=== PATIENT | male | born 1930 | race Caucasian/White ===

== ENCOUNTER 2016-08-02 20:42 | Inpatient (IN) ==
--- NOTE | 2016-08-02 20:53 | Emergency Department Note ---
Disposition Clinical Impression: No other, No other(2 UTI (urinary tract infection) Qualifiers: Urinary tract infection type: acute cystitis Hematuria presence: without hematuria Qualified Code(s): N30.00 - Acute cystitis without hematuria Altered mental status Qualifiers: Altered mental status type: unspecified Qualified Code(s): R41.82 - Altered mental status, unspecified Disposition: Admitted As Inpatient Condition: Fair Time of Disposition: 23:24 Altered Mental Status HPI - General Chief Complaint: ED Altered Mental Status Stated Complaint: "confused, fever, weakness" Time Seen by Provider: 08/02/16 20:51 Source: family, EMS Mode of arrival: EMS Limitations: altered mental status Nursing Notes Reviewed: Yes Vital Signs Reviewed: Yes - History of Present Illness HPI Narrative: 86-year-old comes in with increasing confusion and temperature. Patient's family states he does have early dementia but he seems to be getting more confused had a temperature of 101 today. MD complaint: altered mental status, confusion, other (Fever) Onset (ago): hour(s) Timing confirmed by: family member Consistency of Symptoms: constant - Related Data Previous Rx's Medication Instructions Recorded Ciprofloxacin [Cipro] 500 mg PO BID #10 tablet 04/19/16 Hydrocodone/Acetaminophen [[place] 1 - 2 tab PO Q6H PRN #15 tab 04/19/16 5-325 Tablet] Ondansetron ODT [Zofran ODT] 4 mg SL Q6HR #15 tab.rapdis 04/19/16 Allergies Allergy/AdvReac Type Severity Reaction Status Date / Time No Known Allergies Allergy Verified 04/18/16 23:48 Constitutional: Reports: fever. Denies: chills, weakness, weight change Eyes: Denies: eye pain, eye discharge, vision change ENT ED: Denies: ear pain, throat pain, dental pain, hearing loss, epistaxis, congestion, dysphagia Cardiovascular: Denies: chest pain, palpitations, dyspnea on exertion, edema, syncope Respiratory: Denies: cough, dyspnea, wheezes, hemoptysis, stridor Gastrointestinal: Denies: abdominal pain, nausea, vomiting, diarrhea, constipation, hematemesis, melena, hematochezia Genitourinary: Denies: urgency, dysuria, frequency, hematuria Musculoskeletal: Denies: back pain, neck pain, arthralgia, myalgia Integumentary: Denies: rash, abrasion, lesions Neurological: Reports: confusion. Denies: headache, weakness, numbness, paresthesias, abnormal gait, vertigo Psychiatric: Denies: anxiety, depression, suicidal thoughts, homicidal thoughts , auditory hallucinations, visual hallucinations Endocrine: Denies: fatigue Hematological/Lymphatic: Denies: easy bleeding, easy bruising Allergic/Immunologic: Denies: facial swelling, urticaria Past Medical History - Past Medical History Medical history: Reports: diabetes - Social History Smoking Status: Former smoker Smokeless Tobacco Status: No Alcohol use: Reports: none Drug use: Reports: none Physical Exam - General Limitations: altered mental status General appearance: alert, in no apparent distress - Head Head exam: atraumatic, normocephalic, normal inspection - Eye Eye exam: Present: normal appearance, PERRL, EOMI - ENT ENT exam: normal exam, normal oropharynx, mucous membranes moist - Neck Neck exam: Present: normal inspection, full ROM, trachea midline - Chest Chest inspection: Present: normal inspection, symmetric chest wall rise - Respiratory Respiratory exam: Present: normal lung sounds bilaterally - Cardiovascular Cardiovascular exam: Present: regular rate, normal rhythm, normal heart sounds - Abdominal Exam Abdominal exam: Present: soft, Non-Tender. Absent: tenderness, distention, guarding, rebound, rigidity - Extremities Exam Extremities exam: Present: normal inspection, full ROM. Absent: tenderness, pedal edema - Expanded Lower Extremity Exam Neurovascular/Tendon exam: Absent: motor deficit, sensory deficit, tendon deficit Gait: not tested/not observed - Back Exam Back exam: Present: normal inspection, full ROM. Absent: tenderness - Neurological Exam Neurological exam: Present: alert, oriented X3 - Psychiatric Psychiatric exam: Present: normal affect, normal mood - Skin Skin exam: Present: warm, dry, intact, normal color Course - Reevaluation(s) Reevaluation #1: 86-year-old with borderline dementia who comes in with increasing confusion and not acting himself. Workup included a urine which appears to show infection. Time: 23:23 - Consultations Consultation #1: Discussed with Dr. Figueroa who will admit the patient. Time: 23:23 Vital Signs Temperature 100.0 F H 08/02/16 20:45 Pulse Rate 100 08/02/16 20:45 Respiratory Rate 18 08/02/16 20:45 Blood Pressure 141/81 08/02/16 20:45 O2 Sat by Pulse Oximetry 96 08/02/16 20:45 Temperature 99.4 F 08/02/16 23:58 Pulse Rate 100 08/02/16 22:26 Respiratory Rate 18 08/02/16 23:58 Blood Pressure 154/88 08/02/16 23:58 O2 Sat by Pulse Oximetry 96 08/02/16 22:26 Oxygen Delivery Oxygen Delivery Room Air Altered Mental Status - Lab Data Lab results reviewed: Yes I reviewed the patient's lab results. Result diagrams: 08/02/16 21:17 08/02/16 21:17 Lab Results 08/02/16 08/02/16 08/02/16 Range/Units 21:17 21:17 21:17 WBC 10.1 (4.3-11.1) K/mcL RBC 4.45 (4.19-5.50) M/mcL Hgb 11.9 L (12.9-16.9) g/dL Hct 37.4 L (37.5-50.1) % MCV 84.0 (83.0-100.0) fL MCH 26.7 L (28.0-33.3) pg MCHC 31.8 (31.6-35.5) g/dL RDW 14.1 (11.5-14.5) % Plt Count 397 (140-400) K/mcL MPV 9.1 L (9.4-12.4) fL Immature Gran % 0.9 (0-4) % Seg Neutrophils % 83.0 % Lymphocytes % 7.9 % Monocytes % 7.5 % Eosinophils % 0.4 % Basophils % 0.3 % Neutrophils # 8.4 (1.6-8.9) K/mcL Lymphocytes # 0.8 (0.6-4.6) K/mcL Monocytes # 0.8 (0.0-1.3) K/mcL Eosinophils # 0.0 (0.0-0.6) K/mcL Basophils # 0.0 (0.0-0.2) K/mcL PT 13.1 H (9.4-12.1) Seconds INR 1.2 APTT 33.4 (26.0-36.0) Seconds ABG pH (7.32-7.45) pH Units ABG pCO2 (35-45) mmHg ABG pO2 (85-104) mmHg ABG HCO3 (21-27) mEQ/L ABG Total CO2 (20-26) mEq/L ABG O2 Saturation (95-98) % ABG Base Excess (-2.0 to 3.0) mEq/L Blood Gas Modality Inspired O2 % Sodium 134 L (136-145) mEq/L Potassium 4.0 (3.5-4.5) mEq/L Chloride 98 (98-109) mEq/L Carbon Dioxide 25 (19-29) mEq/L BUN 11 (8-26) mg/dL Creatinine 0.80 (0.72-1.25) mg/dL Est GFR ( Amer) > 60 (> 60) Est GFR (Non-Af Amer) > 60 (> 60) BUN/Creatinine Ratio 14 (6-26) Glucose 241 H (70-99) mg/dL POC Glucose (58-89) Calculated Osmolality 285 (280-300) Lactic Acid (0.5-2.2) mmol/L Calcium 9.4 (8.6-10.8) mg/dL Total Bilirubin 0.7 (0.2-1.2) mg/dL Direct Bilirubin 0.3 (0.0-0.5) mg/dL Indirect Bilirubin 0.4 (0.0-1.2) mg/dL AST 11 (5-34) Units/L ALT 11 (0-55) Units/L Alkaline Phosphatase 64 (38-126) Units/L Ammonia (18-72) mcmol/L Troponin I (0-0.03) ng/mL Serum Total Protein 7.0 (6.0-8.3) g/dL Albumin 3.2 L (3.5-5.0) g/dL Globulin 3.8 H (2.4-3.5) g/dL Albumin/Globulin Ratio 0.8 L (1.1-2.2) Urine Color (Yellow) Urine Clarity (Clear) Urine pH (5.0-8.0) pH Units Ur Specific [place] (1.010-1.025) Urine Protein (Neg-Trace) mg/dL Urine Glucose (UA) (Normal) mg/dL Urine Ketones (Negative) mg/dL Urine Blood (Negative) Urine Nitrite (Negative) Urine Bilirubin (Negative) Urine Urobilinogen (Normal) mg/dL Ur Leukocyte Esterase (Negative) Urine Microscopic RBC (0-3) per hpf Urine Microscopic WBC (0-3) per hpf Ur Squamous Epith Cells (None-Few) per lpf Urine Bacteria (None-Few) per hpf Hyaline Casts Ur Culture Indicated? (NO) Urine Opiates Screen (Dqdhua=492) ng/mL Ur Barbiturates Screen (Kxqgkn=224) ng/mL Ur Phencyclidine Scrn (Cutoff=25) ng/mL Ur Amphetamines Screen (Dpldeg=3657) ng/mL U Benzodiazepines Scrn (Ranxrb=633) ng/mL Urine Cocaine Screen (Cutoff= 300) ng/mL U Marijuana (THC) Screen (Cutoff = 50) ng/mL 08/02/16 08/02/16 08/02/16 Range/Units 21:17 21:17 21:17 WBC (4.3-11.1) K/mcL RBC (4.19-5.50) M/mcL Hgb (12.9-16.9) g/dL Hct (37.5-50.1) % MCV (83.0-100.0) fL MCH (28.0-33.3) pg MCHC (31.6-35.5) g/dL RDW (11.5-14.5) % Plt Count (140-400) K/mcL MPV (9.4-12.4) fL Immature Gran % (0-4) % Seg Neutrophils % % Lymphocytes % % Monocytes % % Eosinophils % % Basophils % % Neutrophils # (1.6-8.9) K/mcL Lymphocytes # (0.6-4.6) K/mcL Monocytes # (0.0-1.3) K/mcL Eosinophils # (0.0-0.6) K/mcL Basophils # (0.0-0.2) K/mcL PT (9.4-12.1) Seconds INR APTT (26.0-36.0) Seconds ABG pH (7.32-7.45) pH Units ABG pCO2 (35-45) mmHg ABG pO2 (85-104) mmHg ABG HCO3 (21-27) mEQ/L ABG Total CO2 (20-26) mEq/L ABG O2 Saturation (95-98) % ABG Base Excess (-2.0 to 3.0) mEq/L Blood Gas Modality Inspired O2 % Sodium (136-145) mEq/L Potassium (3.5-4.5) mEq/L Chloride (98-109) mEq/L Carbon Dioxide (19-29) mEq/L BUN (8-26) mg/dL Creatinine (0.72-1.25) mg/dL Est GFR ( Amer) (> 60) Est GFR (Non-Af Amer) (> 60) BUN/Creatinine Ratio (6-26) Glucose (70-99) mg/dL POC Glucose (58-89) Calculated Osmolality (280-300) Lactic Acid 1.1 (0.5-2.2) mmol/L Calcium (8.6-10.8) mg/dL Total Bilirubin (0.2-1.2) mg/dL Direct Bilirubin (0.0-0.5) mg/dL Indirect Bilirubin (0.0-1.2) mg/dL AST (5-34) Units/L ALT (0-55) Units/L Alkaline Phosphatase (38-126) Units/L Ammonia 18 (18-72) mcmol/L Troponin I 0.02 (0-0.03) ng/mL Serum Total Protein (6.0-8.3) g/dL Albumin (3.5-5.0) g/dL Globulin (2.4-3.5) g/dL Albumin/Globulin Ratio (1.1-2.2) Urine Color (Yellow) Urine Clarity (Clear) Urine pH (5.0-8.0) pH Units Ur Specific [place] (1.010-1.025) Urine Protein (Neg-Trace) mg/dL Urine Glucose (UA) (Normal) mg/dL Urine Ketones (Negative) mg/dL Urine Blood (Negative) Urine Nitrite (Negative) Urine Bilirubin (Negative) Urine Urobilinogen (Normal) mg/dL Ur Leukocyte Esterase (Negative) Urine Microscopic RBC (0-3) per hpf Urine Microscopic WBC (0-3) per hpf Ur Squamous Epith Cells (None-Few) per lpf Urine Bacteria (None-Few) per hpf Hyaline Casts Ur Culture Indicated? (NO) Urine Opiates Screen (Moinzd=474) ng/mL Ur Barbiturates Screen (Ngyzap=247) ng/mL Ur Phencyclidine Scrn (Cutoff=25) ng/mL Ur Amphetamines Screen (Xcgagn=5984) ng/mL U Benzodiazepines Scrn (Aueiph=898) ng/mL Urine Cocaine Screen (Cutoff= 300) ng/mL U Marijuana (THC) Screen (Cutoff = 50) ng/mL 08/02/16 08/02/16 08/02/16 Range/Units 22:06 22:06 22:11 WBC (4.3-11.1) K/mcL RBC (4.19-5.50) M/mcL Hgb (12.9-16.9) g/dL Hct (37.5-50.1) % MCV (83.0-100.0) fL MCH (28.0-33.3) pg MCHC (31.6-35.5) g/dL RDW (11.5-14.5) % Plt Count (140-400) K/mcL MPV (9.4-12.4) fL Immature Gran % (0-4) % Seg Neutrophils % % Lymphocytes % % Monocytes % % Eosinophils % % Basophils % % Neutrophils # (1.6-8.9) K/mcL Lymphocytes # (0.6-4.6) K/mcL Monocytes # (0.0-1.3) K/mcL Eosinophils # (0.0-0.6) K/mcL Basophils # (0.0-0.2) K/mcL PT (9.4-12.1) Seconds INR APTT (26.0-36.0) Seconds ABG pH 7.47 H (7.32-7.45) pH Units ABG pCO2 42 (35-45) mmHg ABG pO2 64 L (85-104) mmHg ABG HCO3 30.6 H (21-27) mEQ/L ABG Total CO2 31.9 H (20-26) mEq/L ABG O2 Saturation 93 L (95-98) % ABG Base Excess 6.3 H (-2.0 to 3.0) mEq/L Blood Gas Modality RA Inspired O2 21 % Sodium (136-145) mEq/L Potassium (3.5-4.5) mEq/L Chloride (98-109) mEq/L Carbon Dioxide (19-29) mEq/L BUN (8-26) mg/dL Creatinine (0.72-1.25) mg/dL Est GFR ( Amer) (> 60) Est GFR (Non-Af Amer) (> 60) BUN/Creatinine Ratio (6-26) Glucose (70-99) mg/dL POC Glucose (58-89) Calculated Osmolality (280-300) Lactic Acid (0.5-2.2) mmol/L Calcium (8.6-10.8) mg/dL Total Bilirubin (0.2-1.2) mg/dL Direct Bilirubin (0.0-0.5) mg/dL Indirect Bilirubin (0.0-1.2) mg/dL AST (5-34) Units/L ALT (0-55) Units/L Alkaline Phosphatase (38-126) Units/L Ammonia (18-72) mcmol/L Troponin I (0-0.03) ng/mL Serum Total Protein (6.0-8.3) g/dL Albumin (3.5-5.0) g/dL Globulin (2.4-3.5) g/dL Albumin/Globulin Ratio (1.1-2.2) Urine Color Dark Yellow (Yellow) Urine Clarity Turbid A (Clear) Urine pH 6.5 (5.0-8.0) pH Units Ur Specific [place] 1.021 (1.010-1.025) Urine Protein 100 H (Neg-Trace) mg/dL Urine Glucose (UA) 250 H (Normal) mg/dL Urine Ketones 15 H (Negative) mg/dL Urine Blood Large H (Negative) Urine Nitrite Negative (Negative) Urine Bilirubin Negative (Negative) Urine Urobilinogen Normal (Normal) mg/dL Ur Leukocyte Esterase Large H (Negative) Urine Microscopic RBC TNTC H (0-3) per hpf Urine Microscopic WBC TNTC H (0-3) per hpf Ur Squamous Epith Cells Many H (None-Few) per lpf Urine Bacteria Many H (None-Few) per hpf Hyaline Casts Test Not Performed Ur Culture Indicated? YES A (NO) Urine Opiates Screen Negative (Ezbrsq=240) ng/mL Ur Barbiturates Screen Negative (Lggfac=716) ng/mL Ur Phencyclidine Scrn Negative (Cutoff=25) ng/mL Ur Amphetamines Screen Negative (Tkvbur=5124) ng/mL U Benzodiazepines Scrn Negative (Dyzdfj=189) ng/mL Urine Cocaine Screen Negative (Cutoff= 300) ng/mL U Marijuana (THC) Screen Negative (Cutoff = 50) ng/mL 08/02/16 Range/Units 22:14 WBC (4.3-11.1) K/mcL RBC (4.19-5.50) M/mcL Hgb (12.9-16.9) g/dL Hct (37.5-50.1) % MCV (83.0-100.0) fL MCH (28.0-33.3) pg MCHC (31.6-35.5) g/dL RDW (11.5-14.5) % Plt Count (140-400) K/mcL MPV (9.4-12.4) fL Immature Gran % (0-4) % Seg Neutrophils % % Lymphocytes % % Monocytes % % Eosinophils % % Basophils % % Neutrophils # (1.6-8.9) K/mcL Lymphocytes # (0.6-4.6) K/mcL Monocytes # (0.0-1.3) K/mcL Eosinophils # (0.0-0.6) K/mcL Basophils # (0.0-0.2) K/mcL PT (9.4-12.1) Seconds INR APTT (26.0-36.0) Seconds ABG pH (7.32-7.45) pH Units ABG pCO2 (35-45) mmHg ABG pO2 (85-104) mmHg ABG HCO3 (21-27) mEQ/L ABG Total CO2 (20-26) mEq/L ABG O2 Saturation (95-98) % ABG Base Excess (-2.0 to 3.0) mEq/L Blood Gas Modality Inspired O2 % Sodium (136-145) mEq/L Potassium (3.5-4.5) mEq/L Chloride (98-109) mEq/L Carbon Dioxide (19-29) mEq/L BUN (8-26) mg/dL Creatinine (0.72-1.25) mg/dL Est GFR ( Amer) (> 60) Est GFR (Non-Af Amer) (> 60) BUN/Creatinine Ratio (6-26) Glucose (70-99) mg/dL POC Glucose 255 H (58-89) Calculated Osmolality (280-300) Lactic Acid (0.5-2.2) mmol/L Calcium (8.6-10.8) mg/dL Total Bilirubin (0.2-1.2) mg/dL Direct Bilirubin (0.0-0.5) mg/dL Indirect Bilirubin (0.0-1.2) mg/dL AST (5-34) Units/L ALT (0-55) Units/L Alkaline Phosphatase (38-126) Units/L Ammonia (18-72) mcmol/L Troponin I (0-0.03) ng/mL Serum Total Protein (6.0-8.3) g/dL Albumin (3.5-5.0) g/dL Globulin (2.4-3.5) g/dL Albumin/Globulin Ratio (1.1-2.2) Urine Color (Yellow) Urine Clarity (Clear) Urine pH (5.0-8.0) pH Units Ur Specific [place] (1.010-1.025) Urine Protein (Neg-Trace) mg/dL Urine Glucose (UA) (Normal) mg/dL Urine Ketones (Negative) mg/dL Urine Blood (Negative) Urine Nitrite (Negative) Urine Bilirubin (Negative) Urine Urobilinogen (Normal) mg/dL Ur Leukocyte Esterase (Negative) Urine Microscopic RBC (0-3) per hpf Urine Microscopic WBC (0-3) per hpf Ur Squamous Epith Cells (None-Few) per lpf Urine Bacteria (None-Few) per hpf Hyaline Casts Ur Culture Indicated? (NO) Urine Opiates Screen (Tltrnv=812) ng/mL Ur Barbiturates Screen (Rexmpq=998) ng/mL Ur Phencyclidine Scrn (Cutoff=25) ng/mL Ur Amphetamines Screen (Udyaom=1908) ng/mL U Benzodiazepines Scrn (Aqrxgh=521) ng/mL Urine Cocaine Screen (Cutoff= 300) ng/mL U Marijuana (THC) Screen (Cutoff = 50) ng/mL - Radiology Data Radiology results reviewed: Yes I reviewed the patient's radiology results. Chest X-Ray 08/02/16 20:47 IMPRESSION: No acute cardiopulmonary disease. D/ / Justin Spear MD / Justin Spear MD Interpreting Provider: Justin Spear MD Head CT 08/02/16 20:51 IMPRESSION: No acute intracranial abnormality. Mild cerebral atrophy appropriate for age. Mild chronic ischemic white matter changes also age-appropriate. D/ / Bhupendra Aldrich MD / Bhupendra Aldrich MD Interpreting Provider: Bhupendra Aldrich MD Checklist - LKW: 3-4.5 hrs Add. Contraindications Patient/family understanding: The patient/family members have been counseled and understood the risk, benefit , and alternatives of treatment.
[2016-08-02 21:30] LABS: Basophils % 0.3 %; Eosinophils % 0.4 %; Hematocrit 37.4 % (37.5-50.1); Hemoglobin 11.9 g/dL (12.9-16.9); Immature Granulocytes % 0.9 % (0-4); Lymphocytes # 0.8 K/mcL (0.6-4.6); Lymphocytes % 7.9 %; Mean Corpuscular HGB Conc 31.8 g/dL (31.6-35.5); Mean Corpuscular Hemoglobin 26.7 pg (28.0-33.3); Mean Platelet Volume 9.1 fL (9.4-12.4); Monocytes # 0.8 K/mcL (0.0-1.3); Monocytes % 7.5 %; Neutrophils # 8.4 K/mcL (1.6-8.9); Platelet Count 397 K/mcL (140-400); Red Blood Count 4.45 M/mcL (4.19-5.50); Red Cell Distribution Width 14.1 % (11.5-14.5)
[2016-08-02 21:34] LABS: INR 1.2; Prothrombin Time 13.1 Seconds (9.4-12.1)
[2016-08-02 21:37] LABS: Activated Partial Thrombo Time 33.4 Seconds (26.0-36.0)
[2016-08-02 21:45] LABS: Alanine Aminotransferase 11 Units/L (0-55); Albumin 3.2 g/dL (3.5-5.0); Albumin/Globulin Ratio 0.8 (1.1-2.2); Alkaline Phosphatase 64 Units/L (38-126); Aspartate Amino Transferase 11 Units/L (5-34); BUN/Creatinine Ratio 14 (6-26); Bilirubin,Direct 0.3 mg/dL (0.0-0.5); Bilirubin,Indirect 0.4 mg/dL (0.0-1.2); Bilirubin,Total 0.7 mg/dL (0.2-1.2); Blood Urea Nitrogen 11 mg/dL (8-26); Calcium 9.4 mg/dL (8.6-10.8); Carbon Dioxide 25 mEq/L (19-29); Chloride 98 mEq/L (98-109); Globulin 3.8 g/dL (2.4-3.5); Glucose 241 mg/dL (70-99); Osmolality,Calculated 285 (280-300); Sodium 134 mEq/L (136-145); eGFR For African Americans > 60 (> 60); eGFR For Non-African Americans > 60 (> 60)
[2016-08-02 22:20] LABS: ABG Base Excess 6.3 mEq/L (-2.0 to 3.0); ABG HCO3 30.6 mEQ/L (21-27); ABG Oxygen Saturation 93 % (95-98); ABG PCO2 42 mmHg (35-45); ABG PH 7.47 pH Units (7.32-7.45); ABG PO2 64 mmHg (85-104); ABG TCO2 31.9 mEq/L (20-26)
[2016-08-02 22:21] LABS: Blood Gas FiO2 21 %
[2016-08-02 22:27] LABS: Bilirubin,Urine Negative (Negative); Blood,Urine Large (Negative); Clarity,Urine Turbid (Clear); Color,Urine Dark Yellow (Yellow); Glucose,Urine (UA) 250 mg/dL (Normal); Ketones,Urine 15 mg/dL (Negative); Leukocyte Esterase,Urine Large (Negative); Nitrite,Urine Negative (Negative); PH,Urine 6.5 pH Units (5.0-8.0); Protein,Urine 100 mg/dL (Neg-Trace); Specific Gravity,Urine 1.021 (1.010-1.025); Urobilinogen,Urine Normal (Normal)
[2016-08-02 22:28] LABS: Amphetamine Screen,Urine Negative ng/mL (Cutoff=1000); Barbiturate Screen,Urine Negative ng/mL (Cutoff=200); Benzodiazepines Screen,Urine Negative ng/mL (Cutoff=200); Cannabinoid Screen,Urine Negative ng/mL (Cutoff = 50); Cocaine Screen,Urine Negative ng/mL (Cutoff= 300); Opiate Screen,Urine Negative ng/mL (Cutoff=300); Phencyclidine Screen,Urine Negative ng/mL (Cutoff=25)
[2016-08-02 22:29] LABS: Bacteria,Urine Many per hpf (None-Few); RBC,Urine TNTC per hpf (0-3); Squamous Epithelial Cell,Urine Many per lpf (None-Few); WBC,Urine TNTC per hpf (0-3)
[2016-08-02] MEDS ORDERED: Acetaminophen 325 MG TABLET PO PRN (23:18)
--- NOTE | 2016-08-02 23:49 | Internal Med History&Physical ---
Date of Encounter: 08/02/16 Time of Encounter: 23:30 Assessment and Plan (1) Altered mental status Current visit: Yes Status: Acute Observation in hospital for altered mental status/acute encephalopathy related to acute urinary tract infection. Will treat UTI with IV antibiotics. Follow urine and blood cultures. CT scan of the head does not show any acute stroke or bleed. Moderate risk for complications. Qualifiers: Altered mental status type: disorientation Qualified Code(s): R41.0 - Disorientation, unspecified (2) UTI (urinary tract infection) Current visit: Yes Status: Acute Will treat with IV antibiotics. Patient received Rocephin in the ER. Will add vancomycin as he has chronic indwelling Crump catheter and previously had staph aureus infection. Qualifiers: Urinary tract infection type: acute cystitis Hematuria presence: with hematuria Qualified Code(s): N30.01 - Acute cystitis with hematuria (3) Diabetes mellitus, type 2 Current visit: Yes Status: Chronic Blood sugars are currently elevated. Will monitor blood sugars and use sliding scale insulin while the patient is in the hospital. Diabetic diet. Qualifiers: Diabetes mellitus complication status: with hyperglycemia Diabetes mellitus intermediate frame tender insulin use: without detention use Qualified Code(s): E11.65 - Type 2 diabetes mellitus with hyperglycemia (4) Dementia Current visit: Yes Status: Chronic Chronic. Not on any medications at this time. Qualifiers: Dementia type: unspecified type Dementia behavioral disturbance: without behavioral disturbance Qualified Code(s): F03.90 - Unspecified dementia without behavioral disturbance Internal Medicine - H&P: HPI Chief complaint: Altered mental status, fever Admitted From: Emergency Dept Plans for Post Hospital Care: Home History of present illness: Mr. 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 At baseline, he is able to ambulate with the help of walker one person assist and is able to feed himself. Last night he was confused and somewhat lethargic and this progressed in the morning where he was unable to participate in activities of daily living throughout the day. His family is present at bedside and provided most of the history given the patient's underlying history of dementia. The patient apparently was having fever this afternoon with a temperature of 101.2. He was also having foul odor in his urine. He is not having any nausea vomiting or diarrhea. He did not complain of any pain. No recent changes in his medications. Past Med Surg Social Fam HX - Past Medical History Medical history: diabetes Psychiatric history: no psych history - Social History Smoking Status: Former smoker Smokeless Tobacco Status: No Alcohol use: none Drug use: none - Additional Family History Additional family history: Reviewed and found to be noncontributory at this time Internal Medicine - H&P: Meds Ciprofloxacin [Cipro] 500 mg PO BID #10 tablet 04/19/16 [Rx] Hydrocodone/Acetaminophen [[place] 5-325 Tablet] 1 - 2 tab PO Q6H PRN #15 tab [Rx] Ondansetron ODT [Zofran ODT] 4 mg SL Q6HR #15 tab.rapdis 04/19/16 [Rx] Allergies No Known Allergies Allergy (Verified 04/18/16 23:48) All Systems PM: A 10-system review of systems was performed and is negative for pertinent findings except as documented above in the HPI. - Constitutional Constitutional: lethargy, malaise, no chills, no fever(s), no night sweats - EENT Eyes: no change in vision, no discharge, no pain, no photophobia Ears: no ear discharge, no ear pain, no tinnitus Nose, mouth and throat: no dysphagia, no nasal discharge, no neck pain, no sore throat - Cardiovascular Cardiovascular ROS IM: no chest pain, no diaphoresis, no dyspnea, no lightheadedness, no palpitations, no syncope - Respiratory Respiratory: no cough, no dyspnea, no wheezing, no excessive phlegm production - Gastrointestinal Gastrointestinal: no abdominal pain, no diarrhea, no hematemesis, no hematochezia, no melena, no nausea, no vomiting - Musculoskeletal Musculoskeletal ROS IM: no numbness, no tingling - Neurological Neurological ROS: confusion - Hematologic/Lymphatic Hematologic/Lymphatic: no easy bruising - Constitutional Vitals: Temp Pulse Resp BP Pulse Ox 100.0 F H 100 22 146/84 96 08/02/16 20:56 08/02/16 22:26 08/02/16 22:26 08/02/16 22:26 08/02/16 22:26 General appearance: Present: cooperative, A&O X 2, no acute distress, answers questions appropriately (Answers some questions appropriately) - Eye Eye exam: Present: EOMI, PERRL, conjuntiva pink, sclera anicteric - Neck Neck exam general surgery: Present: supple, trachea midline. Absent: lymphadenopathy - Respiratory Respiratory exam: Present: CTAB. Absent: accessory muscle use, rales, rhonchi, wheezes - Cardiovascular Cardiovascular exam: Present: RRR, +S1, +S2. Absent: diastolic murmur, gallop, rubs, systolic murmur - GI/Abdominal GI/Abdominal exam: Present: normal bowel sounds, soft, no peritoneal signs. Absent: distended, tenderness - Additional comments: Crump catheter in place - Extremities Exam Extremities exam: Present: warm, radial pulses palpable and symetrical. Absent : calf tenderness, cyanotic, pedal edema - Neurological Exam Neurological exam: Present: alert, no focal deficits. Absent: oriented X3, facial droop, speech deficit - Skin Skin exam: Present: dry, intact Internal Med - H&P Results - Labs CBC & Chem 7: 08/02/16 21:17 08/02/16 21:17 Labs: Short CBC 08/02/16 Range/Units 21:17 WBC 10.1 (4.3-11.1) K/mcL Hgb 11.9 L (12.9-16.9) g/dL Hct 37.4 L (37.5-50.1) % Plt Count 397 (140-400) K/mcL Neutrophils # 8.4 (1.6-8.9) K/mcL BMP 08/02/16 21:17 Sodium 134 L Potassium 4.0 Chloride 98 Carbon Dioxide 25 BUN 11 Creatinine 0.80 Glucose 241 H Calcium 9.4 Cardiac Enzymes 08/02/16 Range/Units 21:17 Troponin I 0.02 (0-0.03) ng/mL Liver Function 08/02/16 Range/Units 21:17 Total Bilirubin 0.7 (0.2-1.2) mg/dL Direct Bilirubin 0.3 (0.0-0.5) mg/dL AST 11 (5-34) Units/L ALT 11 (0-55) Units/L Alkaline Phosphatase 64 (38-126) Units/L Albumin 3.2 L (3.5-5.0) g/dL Urine 08/02/16 Range/Units 22:06 Urine Color Dark Yellow (Yellow) Urine Clarity Turbid A (Clear) Urine pH 6.5 (5.0-8.0) pH Units Ur Specific [place] 1.021 (1.010-1.025) Urine Protein 100 H (Neg-Trace) mg/dL Urine Glucose (UA) 250 H (Normal) mg/dL - ABG Interpretation ABG results: 08/02/16 22:11 ABG pH 7.47 H ABG pCO2 42 ABG pO2 64 L ABG HCO3 30.6 H ABG Total CO2 31.9 H ABG O2 Saturation 93 L ABG Base Excess 6.3 H - Impressions ITS Impressions Chest X-Ray 08/02/16 20:47 IMPRESSION: No acute cardiopulmonary disease. D/ / Justin Spear MD / Justin Spear MD Interpreting Provider: Justin Spear MD Head CT 08/02/16 20:51 IMPRESSION: No acute intracranial abnormality. Mild cerebral atrophy appropriate for age. Mild chronic ischemic white matter changes also age-appropriate. D/ / Bhupendra Aldrich MD / Bhupendra Aldrich MD Interpreting Provider: Bhupendra Aldrich MD - Attending Attestation This document has been at least partially created by [employer] voice recognition technology by Dr. Castillo. Errors in grammar, wording or other phrases may exist. If errors are found after the documentation is signed, they will be addressed individually in the addendum section of this document when appropriate.
[2016-08-03] MEDS ORDERED: *HR* Dextrose 50 % in Water (Syg) 50 ML SYRINGE IVP PRN (00:39)
[2016-08-03] MEDS ORDERED: Dextrose Gel 15 GM PO PRN ×2 (00:39)
[2016-08-03] MEDS ORDERED: D5% in Water 1,000 ML IV PRN (00:39)
[2016-08-03] MEDS ORDERED: Vancomycin 750 MG in D5% in Water 250 ML IVPB SCH (01:00)
[2016-08-03] MEDS: 0.9 % Sodium Chloride 1,000 ML IVC SCH ×2 (02:15→13:03)
[2016-08-03] MEDS: Vancomycin 1,000 MG in D5% in Water 250 ML IVPB SCH (02:16)
[2016-08-03 03:55] LABS: Basophils % 0.3 %; Eosinophils % 0.3 %; Hematocrit 34.5 % (37.5-50.1); Hemoglobin 11.1 g/dL (12.9-16.9); Immature Granulocytes % 1.2 % (0-4); Lymphocytes # 1.4 K/mcL (0.6-4.6); Lymphocytes % 15.6 %; Mean Corpuscular HGB Conc 32.2 g/dL (31.6-35.5); Mean Corpuscular Hemoglobin 26.9 pg (28.0-33.3); Mean Corpuscular Volume 83.5 fL (83.0-100.0); Mean Platelet Volume 9.1 fL (9.4-12.4); Monocytes # 0.8 K/mcL (0.0-1.3); Monocytes % 8.6 %; Neutrophils # 6.5 K/mcL (1.6-8.9); Platelet Count 353 K/mcL (140-400); Red Blood Count 4.13 M/mcL (4.19-5.50); Red Cell Distribution Width 14.1 % (11.5-14.5)
[2016-08-03 04:12] LABS: BUN/Creatinine Ratio 12 (6-26); Blood Urea Nitrogen 9 mg/dL (8-26); Calcium 8.4 mg/dL (8.6-10.8); Carbon Dioxide 25 mEq/L (19-29); Chloride 97 mEq/L (98-109); Glucose 246 mg/dL (70-99); Osmolality,Calculated 279 (280-300); Sodium 131 mEq/L (136-145); eGFR For African Americans > 60 (> 60); eGFR For Non-African Americans > 60 (> 60)
[2016-08-03] MEDS: Insulin LISPRO 300 UNITS/3 ML VIAL SQ SCH ×4 (08:18→20:08)
--- NOTE | 2016-08-03 10:17 | Internal Med Progress Note ---
Date of Encounter: 08/03/16 Time of Encounter: 09:25 - Assessment and plan (1) Altered mental status Current Visit: Yes Status: Acute Assessment and plan: Pt is sleeping. Son reports confusion beyond baseline dementia yesterday. Will treat UTI and follow Urine and blood cultures. Head CT negative for acute abnormality, showed cerebreal atrophy and chronic ischemic what matter chages normally associated with age. Qualifiers: Altered mental status type: disorientation Qualified Code(s): R41.0 - Disorientation, unspecified (2) UTI (urinary tract infection) Current Visit: Yes Status: Acute Assessment and plan: Cultures pending. Will continue Vancomycin and change garibay catheter. Qualifiers: Urinary tract infection type: acute cystitis Hematuria presence: with hematuria Qualified Code(s): N30.01 - Acute cystitis with hematuria (3) Dementia Current Visit: Yes Status: Chronic Assessment and plan: Chronic. Qualifiers: Dementia type: unspecified type Dementia behavioral disturbance: without behavioral disturbance Qualified Code(s): F03.90 - Unspecified dementia without behavioral disturbance (4) Diabetes mellitus, type 2 Current Visit: Yes Status: Chronic Assessment and plan: Blood sugar remains elevated this a.m. A1c 7.8% in May. Will continue to monitor. Diabetic diet, sliding scale insulin, accucheck achs. Qualifiers: Diabetes mellitus complication status: with hyperglycemia Diabetes mellitus half-way insulin use: without intermediate school teacher use Qualified Code(s): E11.65 - Type 2 diabetes mellitus with hyperglycemia - Time Spent With Patient less than 15 minutes - Subjective Interval history: Pt is sleeping, does not arouse through exam. Son/POA is at bedside and speaks with me. He states that his father was up for over 24 hours, confused, vomiting , fever, and now is finally asleep. Pt has garibay due to BPH, family changes and maintains it. Current garibay has been in for 3 weeks and is due to be changed. Pt has never been hospitalized overnight before, family cares for him at home around the clock and they do not want home health care at this time. - Constitutional Vitals: Temp Pulse Resp BP Pulse Ox 99.6 F 54 16 138/74 93 L 08/03/16 07:07 08/03/16 07:07 08/03/16 07:07 08/03/16 07:07 08/03/16 07:07 General appearance: Present: no acute distress Exam: Pt sleeping. - Head Head exam: Present: normal inspection - Eye Eye exam: Present: normal appearance. Absent: periorbital swelling - ENT ENT exam: Present: mucous membranes dry, normal external ear exam - Neck Neck exam general surgery: Absent: lymphadenopathy, thyromegaly - Respiratory Respiratory exam: Absent: rales, respiratory distress, rhonchi, stridor, wheezes , tachypnea Additional comments: Lungs clear anterior and laterally. - Cardiovascular Cardiovascular exam: Present: distant heart sounds, RRR, +S1, +S2. Absent: bradycardia, diastolic murmur, systolic murmur, tachycardia - GI/Abdominal GI/Abdominal exam: Present: hyperactive bowel sounds, soft. Absent: distended, mass - Additional comments: Pt has garibay. - Extremities Exam Extremities exam: Present: normal inspection, warm, radial pulses palpable and symetrical. Absent: cyanotic, pedal edema, tenderness Additional comments: Pt has +2 jayme pedal pulses. Internal Medicine: Result - Labs CBC & Chem 7: 08/03/16 03:33 08/03/16 03:33 Labs: Short CBC 08/03/16 Range/Units 03:33 WBC 8.9 (4.3-11.1) K/mcL Hgb 11.1 L (12.9-16.9) g/dL Hct 34.5 L (37.5-50.1) % Plt Count 353 (140-400) K/mcL Neutrophils # 6.5 (1.6-8.9) K/mcL BMP 08/03/16 03:33 Sodium 131 L Potassium 4.0 Chloride 97 L Carbon Dioxide 25 BUN 9 Creatinine 0.76 Glucose 246 H Calcium 8.4 L - ABG Interpretation ABG results: ABG ABG pH 7.47 pH Units (7.32-7.45) H 08/02/16 22:11 ABG pCO2 42 mmHg (35-45) 08/02/16 22:11 ABG pO2 64 mmHg (85-104) L 08/02/16 22:11 ABG O2 Saturation 93 % (95-98) L 08/02/16 22:11 PT/INR, D-dimer PT 13.1 Seconds (9.4-12.1) H 08/02/16 21:17 Consult Discharge Plan - Plan Referrals: Lisa Gamble DO [Primary Care Provider] -
[2016-08-04] MEDS: Vancomycin 1,000 MG in D5% in Water 250 ML IVPB SCH (01:45)
[2016-08-04] MEDS: 0.9 % Sodium Chloride 1,000 ML IVC SCH (03:18)
[2016-08-04 04:07] LABS: Basophils % 0.2 %; Eosinophils % 0.2 %; Hemoglobin 10.2 g/dL (12.9-16.9); Immature Granulocytes % 0.5 % (0-4); Lymphocytes # 2.1 K/mcL (0.6-4.6); Lymphocytes % 20.2 %; Mean Corpuscular HGB Conc 32.9 g/dL (31.6-35.5); Mean Corpuscular Hemoglobin 27.4 pg (28.0-33.3); Mean Corpuscular Volume 83.3 fL (83.0-100.0); Mean Platelet Volume 9.5 fL (9.4-12.4); Neutrophils # 7.4 K/mcL (1.6-8.9); Platelet Count 313 K/mcL (140-400); Red Blood Count 3.72 M/mcL (4.19-5.50); Red Cell Distribution Width 14.3 % (11.5-14.5); Segmented Neutrophils % 69.9 %
[2016-08-04 04:26] LABS: BUN/Creatinine Ratio 14 (6-26); Blood Urea Nitrogen 10 mg/dL (8-26); Carbon Dioxide 25 mEq/L (19-29); Chloride 98 mEq/L (98-109); Glucose 168 mg/dL (70-99); Osmolality,Calculated 277 (280-300); Potassium 3.8 mEq/L (3.5-4.5); Sodium 132 mEq/L (136-145); eGFR For African Americans > 60 (> 60); eGFR For Non-African Americans > 60 (> 60)
[2016-08-04] MEDS: Insulin LISPRO 300 UNITS/3 ML VIAL SQ SCH ×4 (07:58→20:52)
--- NOTE | 2016-08-04 08:56 | Urology - Consult Note ---
Date of Encounter: 08/04/16 Time of Encounter: 08:54 - Assessment and Plan (1) Urinary retention due to benign prostatic hyperplasia Current Visit: Yes Status: Acute Assessment and plan: We will keep Crump catheter in place. Patient is scheduled to see me August 13 for catheter change. Will keep this appointment for catheter change. No need to change at this time. Continue broad-spectrum antibiotics until the sensitivities return. 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 Patient is now admitted secondary to UTI with confusion. His urine culture did reveal gram-negative rods sensitivities pending. According to his family he is improving slowly. Patient is not awake to answer questions this morning. Past Med Surg Social Fam HX - Past Medical History Medical history: diabetes, other Psychiatric history: no psych history - Social History Smoking Status: Former smoker Smokeless Tobacco Status: No Alcohol use: none Drug use: none - Family History Mother Living Status: Hx Family Endocrine Disorder: Yes (DM) Father Living Status: Hx Family Cardiac Disorders: Yes Medications and Allergies Aspirin 81 mg PO HS 08/03/16 [History] Docusate [Colace] 100 mg PO DAILY PRN 08/03/16 [History] Glimepiride [Amaryl] 4 mg PO BID 08/03/16 [History] Lisinopril [Zestril] 10 mg PO HS 08/03/16 [History] Metformin [Glucophage] 1,000 mg PO BID 08/03/16 [History] Simvastatin [Zocor] 40 mg PO HS 08/03/16 [History] SitaGLIPtin [Januvia] 100 mg PO DAILY 08/03/16 [History] Allergies No Known Allergies Allergy (Verified 04/18/16 23:48) Review of Systems ROS unobtainable: due to mental status Exam Initial Vital Signs Temp Pulse Resp BP Pulse Ox 100.0 F H 100 18 141/81 96 08/02/16 20:45 08/02/16 20:45 08/02/16 20:45 08/02/16 20:45 08/02/16 20:45 - General physical appearance Present: well developed - Neck Present: no masses - Respiratory Present: normal respiratory effort - Cardiovascular Cardiovascular exam IM: RRR - Abdomen Abdomen: Present: soft - Genitourinary other (Urine clear in tubing) Urology Results - Labs 08/04/16 03:15 08/04/16 03:15 Abnormal lab results RBC 3.72 M/mcL (4.19-5.50) L 08/04/16 03:15 Hgb 10.2 g/dL (12.9-16.9) L 08/04/16 03:15 Hct 31.0 % (37.5-50.1) L 08/04/16 03:15 MCH 27.4 pg (28.0-33.3) L 08/04/16 03:15 PT 13.1 Seconds (9.4-12.1) H 08/02/16 21:17 ABG pH 7.47 pH Units (7.32-7.45) H 08/02/16 22:11 ABG pO2 64 mmHg (85-104) L 08/02/16 22:11 ABG HCO3 30.6 mEQ/L (21-27) H 08/02/16 22:11 ABG Total CO2 31.9 mEq/L (20-26) H 08/02/16 22:11 ABG O2 Saturation 93 % (95-98) L 08/02/16 22:11 ABG Base Excess 6.3 mEq/L (-2.0 to 3.0) H 08/02/16 22:11 Sodium 132 mEq/L (136-145) L 08/04/16 03:15 Creatinine 0.69 mg/dL (0.72-1.25) L 08/04/16 03:15 Glucose 168 mg/dL (70-99) H 08/04/16 03:15 POC Glucose 158 (58-89) H 08/04/16 07:31 Calculated Osmolality 277 (280-300) L 08/04/16 03:15 Calcium 8.0 mg/dL (8.6-10.8) L 08/04/16 03:15 Albumin 3.2 g/dL (3.5-5.0) L 08/02/16 21:17 Globulin 3.8 g/dL (2.4-3.5) H 08/02/16 21:17 Albumin/Globulin Ratio 0.8 (1.1-2.2) L 08/02/16 21:17 Urine Clarity Turbid (Clear) A 08/02/16 22:06 Urine Protein 100 mg/dL (Neg-Trace) H 08/02/16 22:06 Urine Glucose (UA) 250 mg/dL (Normal) H 08/02/16 22:06 Urine Ketones 15 mg/dL (Negative) H 08/02/16 22:06 Urine Blood Large (Negative) H 08/02/16 22:06 Ur Leukocyte Esterase Large (Negative) H 08/02/16 22:06 Urine Microscopic RBC TNTC per hpf (0-3) H 08/02/16 22:06 Urine Microscopic WBC TNTC per hpf (0-3) H 08/02/16 22:06 Ur Squamous Epith Cells Many per lpf (None-Few) H 08/02/16 22:06 Urine Bacteria Many per hpf (None-Few) H 08/02/16 22:06 Ur Culture Indicated? YES (NO) A 08/02/16 22:06 Diabetes panel 08/04/16 Range/Units 03:15 Sodium 132 L (136-145) mEq/L Potassium 3.8 (3.5-4.5) mEq/L Chloride 98 (98-109) mEq/L Carbon Dioxide 25 (19-29) mEq/L BUN 10 (8-26) mg/dL Creatinine 0.69 L (0.72-1.25) mg/dL Glucose 168 H (70-99) mg/dL Calcium 8.0 L (8.6-10.8) mg/dL Calcium panel 08/04/16 Range/Units 03:15 Calcium 8.0 L (8.6-10.8) mg/dL Pituitary panel 08/04/16 Range/Units 03:15 Sodium 132 L (136-145) mEq/L Potassium 3.8 (3.5-4.5) mEq/L Chloride 98 (98-109) mEq/L Carbon Dioxide 25 (19-29) mEq/L BUN 10 (8-26) mg/dL Creatinine 0.69 L (0.72-1.25) mg/dL Glucose 168 H (70-99) mg/dL Calcium 8.0 L (8.6-10.8) mg/dL Adrenal panel 03/05/17 Range/Units 03:15 Sodium 132 L (136-145) mEq/L Potassium 3.8 (3.5-4.5) mEq/L Chloride 98 (98-109) mEq/L Carbon Dioxide 25 (19-29) mEq/L BUN 10 (8-26) mg/dL Creatinine 0.69 L (0.72-1.25) mg/dL Glucose 168 H (70-99) mg/dL Calcium 8.0 L (8.6-10.8) mg/dL All other labs normal. Consult Discharge Plan - Plan Referrals: Lisa Gamble DO [Primary Care Provider] -
[2016-08-04] MEDS ORDERED: 0.9 % Sodium Chloride 1,000 ML IVC SCH (09:13)
--- NOTE | 2016-08-04 09:16 | Internal Med Progress Note ---
Date of Encounter: 08/04/16 Time of Encounter: 09:14 - Assessment and plan (1) UTI (urinary tract infection) Current Visit: Yes Status: Acute Assessment and plan: Patient with a complicated urinary tract infection in the setting of a indwelling catheter placed. He has a history of multiple urinary tract infections in the past. Currently the urine culture revealed gram-negative rods. He has a history of infection due to a Staphylococcus in the past. At this point, we will continue with both Rocephin and vancomycin. The patient is at high risk of complications, he has a poor nutritional status. She is receiving a high risk medication such as vancomycin, we need to monitor the vancomycin levels and kidney function test accordingly. We will adjust antibiotic therapy according to cultures. Evaluation by urology appreciated. We will follow recommendations. Plan discussed in detail with the patient and his daughter, they both expressed understanding. We will decrease the rate of the IV fluids at this point, we will reevaluate and see how he is eating or drinking, might stop the IV fluids tomorrow. We will obtain a consultation with physical therapy and occupational therapy. The patient may benefit from placement at a subacute rehabilitation center. human services professional evaluation requested. Qualifiers: Urinary tract infection type: acute cystitis Hematuria presence: with hematuria Qualified Code(s): N30.01 - Acute cystitis with hematuria (2) Dementia Current Visit: Yes Status: Chronic Assessment and plan: Chronic. Qualifiers: Dementia type: unspecified type Dementia behavioral disturbance: without behavioral disturbance Qualified Code(s): F03.90 - Unspecified dementia without behavioral disturbance (3) Diabetes mellitus, type 2 Current Visit: Yes Status: Chronic Assessment and plan: BWill continue to monitor. Diabetic diet, sliding scale insulin, accucheck achs. Qualifiers: Diabetes mellitus complication status: with hyperglycemia Diabetes mellitus termite exterminator helper insulin use: without termite exterminator helper use Qualified Code(s): E11.65 - Type 2 diabetes mellitus with hyperglycemia (4) Hyponatremia Current Visit: Yes Status: Acute Assessment and plan: He has had hyponatremia in the past, sodium levels during this admission are similar to the one he had in May. We will continue monitoring. The patient has no neurological symptoms at this point. Regardless, we will obtain hyponatremia workup including urine electrolytes, urine osmolality and serum osmolality. (5) Anemia Current Visit: Yes Status: Acute Assessment and plan: We will obtain anemia workup. Qualifiers: Anemia type: unspecified type Qualified Code(s): D64.9 - Anemia, unspecified (6) DVT prophylaxis Current Visit: Yes Status: Acute Assessment and plan: Will provide DVT prophylaxis with both heparin and EPCDs. - Subjective Interval history: This is my first encounter with the patient. Patient was seen and examined at bedside, his daughter was present during this encounter. The patient is alert, awake, partially oriented. He is not in respiratory distress. He has a garibay catheter placed. He is breathing on room air. He denies respiratory distress or fever. - Constitutional Vitals: Temp Pulse Resp BP Pulse Ox 99.1 F 77 15 140/75 93 L 08/04/16 07:44 08/04/16 07:44 08/04/16 07:44 08/04/16 07:44 08/04/16 07:44 General appearance: Present: cooperative, A&O X 2, no acute distress - Head Head exam: Present: atraumatic, normocephalic - Eye Eye exam: Present: PERRL, conjuntiva pink, sclera anicteric Pupils: Present: PERRL - Neck Neck exam general surgery: Present: supple, trachea midline. Absent: lymphadenopathy - Respiratory Respiratory exam: Present: CTAB. Absent: accessory muscle use, rales, rhonchi, wheezes - Cardiovascular Cardiovascular exam: Present: RRR, +S1, +S2. Absent: diastolic murmur, gallop, rubs, systolic murmur - GI/Abdominal GI/Abdominal exam: Present: normal bowel sounds, soft, no peritoneal signs. Absent: distended, tenderness - Extremities Exam Extremities exam: Present: warm, radial pulses palpable and symetrical. Absent : calf tenderness, cyanotic, pedal edema - Neurological Exam Neurological exam: Present: CN II-XII intact, oriented X3. Absent: pronater drift, facial droop, speech deficit - Skin Skin exam: Present: dry, intact Internal Medicine: Result - Labs CBC & Chem 7: 08/04/16 03:15 08/04/16 03:15 Labs: Short CBC 08/04/16 Range/Units 03:15 WBC 10.5 (4.3-11.1) K/mcL Hgb 10.2 L (12.9-16.9) g/dL Hct 31.0 L (37.5-50.1) % Plt Count 313 (140-400) K/mcL Neutrophils # 7.4 (1.6-8.9) K/mcL BMP 08/04/16 03:15 Sodium 132 L Potassium 3.8 Chloride 98 Carbon Dioxide 25 BUN 10 Creatinine 0.69 L Glucose 168 H Calcium 8.0 L - ABG Interpretation ABG results: ABG ABG pH 7.47 pH Units (7.32-7.45) H 08/02/16 22:11 ABG pCO2 42 mmHg (35-45) 08/02/16 22:11 ABG pO2 64 mmHg (85-104) L 08/02/16 22:11 ABG O2 Saturation 93 % (95-98) L 08/02/16 22:11 PT/INR, D-dimer PT 13.1 Seconds (9.4-12.1) H 08/02/16 21:17 Consult Discharge Plan - Plan Referrals: Lisa Gamble DO [Primary Care Provider] -
[2016-08-05] MEDS: 0.9 % Sodium Chloride 1,000 ML IVC SCH (01:08)
[2016-08-05 01:20] LABS: Basophils % 0.2 %; Eosinophils % 0.3 %; Hematocrit 31.4 % (37.5-50.1); Hemoglobin 10.3 g/dL (12.9-16.9); Immature Granulocytes % 0.4 % (0-4); Lymphocytes # 2.2 K/mcL (0.6-4.6); Lymphocytes % 18.8 %; Mean Corpuscular HGB Conc 32.8 g/dL (31.6-35.5); Mean Corpuscular Hemoglobin 27.2 pg (28.0-33.3); Mean Corpuscular Volume 83.1 fL (83.0-100.0); Mean Platelet Volume 9.5 fL (9.4-12.4); Monocytes # 0.7 K/mcL (0.0-1.3); Neutrophils # 8.7 K/mcL (1.6-8.9); Platelet Count 322 K/mcL (140-400); Red Blood Count 3.78 M/mcL (4.19-5.50); Red Cell Distribution Width 14.1 % (11.5-14.5); Segmented Neutrophils % 74.3 %
[2016-08-05 01:28] LABS: BUN/Creatinine Ratio 13 (6-26); Blood Urea Nitrogen 8 mg/dL (8-26); Calcium 8.3 mg/dL (8.6-10.8); Carbon Dioxide 25 mEq/L (19-29); Chloride 97 mEq/L (98-109); Glucose 120 mg/dL (70-99); Magnesium 1.4 mg/dL (1.6-2.6); Osmolality,Calculated 272 (280-300); Potassium 3.6 mEq/L (3.5-4.5); Sodium 131 mEq/L (136-145); eGFR For African Americans > 60 (> 60); eGFR For Non-African Americans > 60 (> 60)
[2016-08-05 01:52] LABS: Thyroid Stimulating Hormone 3.857 mcIU/mL (0.350-4.840)
[2016-08-05] MEDS ORDERED: Vancomycin 1,000 MG in D5% in Water 250 ML IVPB SCH (03:30)
--- NOTE | 2016-08-05 07:04 | Electrocardiograph Report ---
[address] [place] [address] Test Date: 2016-08-02 Pat Name: Jc Cooper Department: 103 Room: 3B21 Gender: M Food Photographer: : 1930 Requested By: Jose Juan Robins Order Number: [id number] Reading MD: Esa Gregory MD Measurements Intervals [place] Rate: 102 P: FL: 0 QRS: -11 QRSD: 86 T: 99 QT: 321 QTc: 380 Interpretive Statements ATRIAL FIBRILLATION WITH RAPID VENTRICULAR RESPONSE ANTEROSEPTAL MYOCARDIAL INFARCTION, OF INDETERMINATE AGE Electronically Signed On 08-05-2016 7:02:52 EST by Esa Gregory MD
[2016-08-05] MEDS ORDERED: Aminoglycoside Consult 1 EACH MC ONE (07:52)
[2016-08-05] MEDS: *HR* Enoxaparin 40 MG/0.4 ML SYRINGE SQ SCH (08:00)
[2016-08-05] MEDS: Insulin LISPRO 300 UNITS/3 ML VIAL SQ SCH ×4 (08:02→21:13)
--- NOTE | 2016-08-05 11:57 | Internal Med Progress Note ---
Date of Encounter: 08/05/16 Time of Encounter: 11:53 - Assessment and plan (1) UTI (urinary tract infection) Current Visit: Yes Status: Acute Assessment and plan: Patient with a complicated urinary tract infection in the setting of a indwelling catheter placed. He has a history of multiple urinary tract infections in the past. Urine culture revealed gram-negative rods, klebsiella. He has a history of infection due to a Staphylococcus in the past. At this point, we will continue with Rocephin and D/C vancomycin since there is no evidence of active infection due to Staphylococcus aureus. The patient is at high risk of complications, he has a poor nutritional status. We will adjust antibiotic therapy according to cultures. Evaluation by urology appreciated. Plan discussed in detail with the patient and his daughters and son, they expressed understanding.. Follow recommendations by physical therapy and occupational therapy. The patient may benefit from placement at a subacute rehabilitation center, however patient and his family state that patient is not willing to go to [facility]. manager technical services evaluation requested. Qualifiers: Urinary tract infection type: acute cystitis Hematuria presence: with hematuria Qualified Code(s): N30.01 - Acute cystitis with hematuria (2) Dementia Current Visit: Yes Status: Chronic Qualifiers: Dementia type: unspecified type Dementia behavioral disturbance: without behavioral disturbance Qualified Code(s): F03.90 - Unspecified dementia without behavioral disturbance (3) Diabetes mellitus, type 2 Current Visit: Yes Status: Chronic Assessment and plan: Will continue to monitor. Diabetic diet, sliding scale insulin, accucheck achs. Qualifiers: Diabetes mellitus complication status: with hyperglycemia Diabetes mellitus detention insulin use: without rn long term care use Qualified Code(s): E11.65 - Type 2 diabetes mellitus with hyperglycemia (4) Hyponatremia Current Visit: Yes Status: Acute Assessment and plan: He has had hyponatremia in the past, sodium levels during this admission are similar to the one he had in May. We will continue monitoring. (5) Anemia Current Visit: Yes Status: Acute Qualifiers: Anemia type: unspecified type Qualified Code(s): D64.9 - Anemia, unspecified (6) DVT prophylaxis Current Visit: Yes Status: Acute Assessment and plan: Will provide DVT prophylaxis with both heparin and EPCDs. (7) Hypomagnesemia Current Visit: Yes Status: Acute Assessment and plan: Will supplement magnesium via IV today. - Subjective Interval history: Patient was seen and examined at bedside, his daughters and son were present during this encounter. The patient is awakes when called by his name, partially oriented, looks drowsy. He is not in respiratory distress. He has a garibay catheter placed. He is breathing on room air. No fever. - Constitutional Vitals: Temp Pulse Resp BP Pulse Ox 98.9 F 79 20 151/81 91 L 08/05/16 07:49 08/05/16 07:49 08/05/16 07:49 08/05/16 07:49 08/05/16 08:00 General appearance: Present: cooperative, A&O X 2, no acute distress - Head Head exam: Present: atraumatic, normocephalic - Eye Eye exam: Present: PERRL, conjuntiva pink, sclera anicteric Pupils: Present: PERRL - Neck Neck exam general surgery: Present: supple, trachea midline. Absent: lymphadenopathy - Respiratory Respiratory exam: Present: CTAB. Absent: accessory muscle use, rales, rhonchi, wheezes - Cardiovascular Cardiovascular exam: Present: RRR, +S1, +S2. Absent: diastolic murmur, gallop, rubs, systolic murmur - GI/Abdominal GI/Abdominal exam: Present: normal bowel sounds, soft, no peritoneal signs. Absent: distended, tenderness - Extremities Exam Extremities exam: Present: warm, radial pulses palpable and symetrical. Absent : calf tenderness, cyanotic, pedal edema - Neurological Exam Neurological exam: Present: CN II-XII intact, no focal deficits. Absent: pronater drift, facial droop, speech deficit - Skin Skin exam: Present: dry, intact Internal Medicine: Result - Labs CBC & Chem 7: 08/05/16 00:35 08/05/16 00:35 Labs: Short CBC 08/05/16 Range/Units 00:35 WBC 11.7 H (4.3-11.1) K/mcL Hgb 10.3 L (12.9-16.9) g/dL Hct 31.4 L (37.5-50.1) % Plt Count 322 (140-400) K/mcL Neutrophils # 8.7 (1.6-8.9) K/mcL BMP 08/05/16 00:35 Sodium 131 L Potassium 3.6 Chloride 97 L Carbon Dioxide 25 BUN 8 Creatinine 0.60 L Glucose 120 H Calcium 8.3 L - ABG Interpretation ABG results: ABG ABG pH 7.47 pH Units (7.32-7.45) H 08/02/16 22:11 ABG pCO2 42 mmHg (35-45) 08/02/16 22:11 ABG pO2 64 mmHg (85-104) L 08/02/16 22:11 ABG O2 Saturation 93 % (95-98) L 08/02/16 22:11 PT/INR, D-dimer PT 13.1 Seconds (9.4-12.1) H 08/02/16 21:17 - VTE Documentation of Mechanical Device: Intermittent pneumatic compression device Consult Discharge Plan - Plan Referrals: Lisa Gamble DO [Primary Care Provider] -
[2016-08-05] MEDS: Magnesium Sulfate 2 GM in D5% in Water 100 ML IVPB SCH ×3 (14:08→15:24)
[2016-08-06 05:21] LABS: Basophils % 0.1 %; Eosinophils # 0.1 K/mcL (0.0-0.6); Eosinophils % 0.6 %; Hematocrit 33.2 % (37.5-50.1); Hemoglobin 10.7 g/dL (12.9-16.9); Immature Granulocytes % 0.6 % (0-4); Lymphocytes # 1.7 K/mcL (0.6-4.6); Lymphocytes % 20.5 %; Mean Corpuscular HGB Conc 32.2 g/dL (31.6-35.5); Mean Corpuscular Hemoglobin 26.6 pg (28.0-33.3); Mean Corpuscular Volume 82.4 fL (83.0-100.0); Mean Platelet Volume 9.3 fL (9.4-12.4); Monocytes # 0.6 K/mcL (0.0-1.3); Platelet Count 317 K/mcL (140-400); Red Blood Count 4.03 M/mcL (4.19-5.50); Red Cell Distribution Width 13.9 % (11.5-14.5); Segmented Neutrophils % 71.2 %
[2016-08-06 05:32] LABS: BUN/Creatinine Ratio 12 (6-26); Blood Urea Nitrogen 8 mg/dL (8-26); Carbon Dioxide 27 mEq/L (19-29); Chloride 96 mEq/L (98-109); Glucose 140 mg/dL (70-99); Osmolality,Calculated 277 (280-300); Potassium 3.6 mEq/L (3.5-4.5); Sodium 133 mEq/L (136-145); eGFR For African Americans > 60 (> 60); eGFR For Non-African Americans > 60 (> 60)
[2016-08-06] MEDS: *HR* Enoxaparin 40 MG/0.4 ML SYRINGE SQ SCH (06:10)
[2016-08-06 08:19] VITALS: BP 144/83
[2016-08-06] MEDS: Insulin LISPRO 300 UNITS/3 ML VIAL SQ SCH (09:15)
--- NOTE | 2016-08-06 10:50 | Discharge Summary ---
Date of Encounter: 08/06/16 Time of Encounter: 09:00 - Discharge Diagnosis (1) UTI (urinary tract infection) Priority: Primary Status: Acute Comments: Catheter associated. Urine culture revealing Klebsiella pneumoniae pansensitive for everything besides nitrofurantoin. No known drug allergies. Was treated with ceftriaxone while admitted. Will send home on levofloxacin Qualifiers: Urinary tract infection type: catheter-associated UTI Indwelling urinary catheter type: indwelling urethral catheter Encounter type: subsequent encounter Qualified Code(s): T83.511D - Infection and inflammatory reaction due to indwelling urethral catheter, subsequent encounter; N39.0 - Urinary tract infection, site not specified (2) Klebsiella pneumoniae infection Priority: Primary Status: Acute (3) Encephalopathy Priority: Primary Status: Resolved Comments: Secondary to urinary tract infection. Patient alert and oriented 3 on day of discharge and consistent with his baseline according to his family. (4) Anemia Priority: Primary Status: Acute Comments: Mild, remained stable throughout this admission, follow-up outpatient Qualifiers: Anemia type: unspecified type Qualified Code(s): D64.9 - Anemia, unspecified (5) DVT prophylaxis Priority: Primary Status: Acute Comments: Subcutaneous Lovenox while admitted (6) Hypomagnesemia Priority: Primary Status: Acute Comments: Was given 2 g magnesium sulfate via IV, likely resolve, follow-up outpatient potassium normal. (7) Hyponatremia Priority: Primary Status: Acute Comments: Mild and associated with hypo-osmolality. Follow-up outpatient. (8) Urinary retention due to benign prostatic hyperplasia Priority: Secondary Status: Chronic Comments: Seen by urology during this visit, is scheduled to have Garibay changed on . Follow-up outpatient (9) Dementia Priority: Secondary Status: Chronic Qualifiers: Dementia type: unspecified type Dementia behavioral disturbance: without behavioral disturbance Qualified Code(s): F03.90 - Unspecified dementia without behavioral disturbance (10) Diabetes mellitus, type 2 Priority: Secondary Status: Chronic Comments: Relatively well-controlled with a recent A1c of 7.8%. Recommend continued follow-up outpatient. 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 Comments: Treated with Allevyn while admitted, present on admission, follow-up outpatient Qualifiers: Laterality: right Qualified Code(s): L89.312 - Pressure ulcer of right buttock, stage 2 - Discharge Medications Prescriptions: Levofloxacin 750 mg PO DAILY #5 tablet Home Medications: Aspirin 81 mg PO HS 08/03/16 [History] Docusate [Colace] 100 mg PO DAILY PRN 08/03/16 [History] Glimepiride [Amaryl] 4 mg PO BID 08/03/16 [History] Lisinopril [Zestril] 10 mg PO HS 08/03/16 [History] Metformin [Glucophage] 1,000 mg PO BID 08/03/16 [History] Simvastatin [Zocor] 40 mg PO HS 08/03/16 [History] SitaGLIPtin [Januvia] 100 mg PO DAILY 08/03/16 [History] Levofloxacin 750 mg PO DAILY #5 tablet 08/06/16 [Rx] Allergies/Adverse Reactions: Allergies No Known Allergies Allergy (Verified 04/18/16 23:48) Date of admission: 08/04/16 15:25 Primary care physician: Lisa Gamble DO Consults: 08/02/16 23:19 Consult to [employer]el [employer]ic [employer] [CONS] Routine Reason for SW Consult: Discharge planning 08/03/16 17:59 Consult to Urology [CONS] Routine Consulting Provider: Josef Patterson Reason for Consult: UTI. Pt has garibay and BPH. It is normally changed by Dr. Almeida. It is due to be changed on Friday. Call Completed: No 08/04/16 09:12 Consult to Physical Therapy [CONS] Routine Comment: Evaluate, develop and implement POC OT [Consult to Occupational Therapy] [CONS] Routine Comment: Evaluate, develop and implement POC Discharging clinician: Carlee Almaraz Anticipated date of discharge: 08/06/16 (pt and family refused ECF or HH svcs) - Patient Status Disposition: Home, Self-Care Condition: Fair Functional capacity at discharge: uses cane/walker Overall status at discharge: patient is progressing back to baseline - Discharge Instructions Follow Up With: Marcus Almeida MD [Partnered Physician] - 08/13/16 1:45 pm Lisa Gamble DO [Primary Care Provider] - 08/14/16 10:00 am Additional Instructions: Follow-up with primary care provider and urologist as scheduled - Diet and Activity Activity: ambulate only with your walker, increase activity as tolerated Diet: diabetic diet, low salt diet Hospital course: Mr. Cooper is a 86 year old male with past medical history of dementia, BPH with chronic indwelling Garibay catheter, diabetes. Patient presented to the emergency department chief complaint increased confusion and lethargy 2-3 days prior to presentation. At his baseline, patient is able to ambulate with a walker with 1 person assist and is able to feed himself. On the night prior to presentation, he became confused and lethargic and the following morning he was unable to participate in his ADLs so his family brought him to the emergency department. Patient was also noted to have been febrile prior to presentation. Family also noted malodorous urine. Workup in the emergency department revealing a urinary tract infection. Patient was started on ceftriaxone and vancomycin and admitted to the hospitalist service for further evaluation and management. Patient was admitted him [facility] over the course of 5 days. Urology was brought on board who recommended continued medical management. He is due to have his Garibay replaced on 08/13/16. Chest x-ray negative. Head CT negative. Blood cultures negative. Flu swabs negative. Patient was alert and oriented 3 and consistent with his baseline throughout this admission according to his family. He was seen and evaluated by occupational and physical therapy both of whom recommended ECF placement. The patient's family refused ECF placement. They also refused home health services stating that the patient has 5 children and they rotate and he has never left alone. Urine culture consistent with Klebsiella pneumoniae and pansensitive for everything besides nitrofurantoin. He was sent home on levofloxacin. He was discharged home in stable condition with close outpatient follow-up recommended. ITS Impressions Chest X-Ray 08/02/16 20:47 IMPRESSION: No acute cardiopulmonary disease. D/ / Justin Spear MD / Justin Spear MD Interpreting Provider: Justin Spear MD Head CT 08/02/16 20:51 IMPRESSION: No acute intracranial abnormality. Mild cerebral atrophy appropriate for age. Mild chronic ischemic white matter changes also age-appropriate. D/ / Bhupendra Aldrich MD / Bhupendra Aldrich MD Interpreting Provider: Bhupendra Aldrich MD - Time Spent with Patient Total time spent providing and/or coordinating discharge services: - Constitutional Vitals: Temp Pulse Resp BP Pulse Ox 98.6 F 67 17 144/83 91 L 08/06/16 08:05 08/06/16 08:05 08/06/16 08:05 08/06/16 08:05 08/06/16 08:05 General appearance: Present: cooperative, A&O X 3, pleasant, no acute distress, answers questions appropriately - Head Head exam: Present: atraumatic, normocephalic - Eye Eye exam: Present: PERRL, conjuntiva pink, sclera anicteric Pupils: Present: PERRL - Neck Neck exam general surgery: Present: supple, trachea midline. Absent: lymphadenopathy - Respiratory Respiratory exam: Present: CTAB. Absent: accessory muscle use, rales, respiratory distress, rhonchi, wheezes - Cardiovascular Cardiovascular exam: Present: RRR, +S1, +S2. Absent: diastolic murmur, gallop, rubs, systolic murmur - GI/Abdominal GI/Abdominal exam: Present: normal bowel sounds, soft, no peritoneal signs. Absent: distended, tenderness - Extremities Exam Extremities exam: Present: warm, radial pulses palpable and symetrical. Absent : calf tenderness, cyanotic, pedal edema - Neurological Exam Neurological exam: Present: alert, CN II-XII intact, oriented X3, no focal deficits, strengths equal and symetr throughout. Absent: pronater drift, facial droop, speech deficit - Skin Skin exam: Present: dry, intact, normal color, warm - VTE Documentation of Mechanical Device: Intermittent pneumatic compression device
== END 2016-08-06 12:42 | disposition home or self-care (01) | DRG 698 ==
LOC: EMEROO 20:42 → 3BNU 20:42 → SUATTDRO 23:51 → 3BNU 23:59 → SUATTDRO 08-04 15:25
PROVIDERS: ADMIT Internal Medicine; ATTEND Nurse Practitioner Family